=== PATIENT | male | born 2005 | race Hispanic/Latino ===

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

== ENCOUNTER 2023-11-07 06:31 | Emergency (ER) | payer MEDICAID ==
[~2023-11-07] VITALS: Ht 167.6 cm; Wt 90.4 kg
[~2023-11-07 06:31] MED LIST changes: +IBUP-2071 PO; +OSEL75 PO
[2023-11-07 06:54] LABS: APPEARANCE,URINE CLEAR (CLEAR); BILIRUBIN,URINE NEGATIVE (NEGATIVE); COLOR,URINE LIGHT-YELLOW (YELLOW); GLUCOSE, URINE (UA) NEGATIVE (NEGATIVE); KETONES,URINE NEGATIVE (NEGATIVE); LEUKOCYTE ESTERASE ,URINE NEGATIVE Leu/uL (NEGATIVE); NITRATE,URINE NEGATIVE (NEGATIVE); OCCULT BLOOD,URINE NEGATIVE (NEGATIVE); PROTEIN,URINE 100 mg/dL (NEGATIVE); UROBILINOGEN,URINE 0.2 mg/dL (0.2-1.0)
[2023-11-07 06:55] LABS: ADD UA MICROSCOPIC YES
[2023-11-07 07:02] LABS: SQUAMOUS EPITHELIAL CELL,UR RARE /HPF (0-2); WBC,URINE 0-1 /HPF (0-1)
[2023-11-07] MEDS ORDERED: KETOROLAC 30MG VIAL (30MG/ML) IVP ONE (08:00)
[2023-11-07] MEDS ORDERED: FAMOTIDINE 20MG VIAL IV ONE (08:00)
[2023-11-07 08:03] LABS: HEMATOCRIT 46.1 % (42-54); MEAN CORPUSCULAR HEMOGLOBIN 26.9 pg (27.0-33.0); MEAN CORPUSCULAR HGB CONC 32.3 g/dL (32.0-36.0); MEAN CORPUSCULAR VOLUME 83.2 fL (80-100); RED BLOOD CELL COUNT(AUTO) 5.54 MIL/uL (4.50-6.20); RED CELL DISTRIBUTION WIDTH 13.2 % (11.0-15.5); WHITE BLOOD COUNT (AUTO) 9.5 K/uL (4.8-10.8)
[2023-11-07 08:16] LABS: CREATININE 0.8 mg/dL (0.5-1.5); POTASSIUM 4.3 mmol/L (3.5-5.1)
[2023-11-07] MEDS ORDERED: 0.9%NACL 1000ML 1,275 ML IV ONE (08:30)
[2023-11-07] MEDS ORDERED: IOHEXOL-350 75 ML VIAL IV ONE (08:36)
[2023-11-07 10:30] VITALS: BP 110/70; RESP 16; O2SAT 99
[2023-11-07 11:07] VITALS: PULSE 94
== END 2023-11-07 11:29 | disposition home or self-care (01) ==
LOC: EDH 06:31
DX: I86.1 Scrotal varices (principal); F84.0 Autistic disorder; J45.909 Unspecified asthma, uncomplicated; F90.9 Attention-deficit hyperactivity disorder, unspecified type
CPT/HCPCS: 99285; 74178; 96374; 96361; 96375; 80048; 85027; 81001; 36415; 76870; J1885; Q9967; S0028; J3490

== ENCOUNTER → 2024-03-30 | Outpatient (CLI) | payer MEDICAID ==
[~2024-03-30] MED LIST changes: +CEPH500B PO; +CETI10CA5 PO; +DOCU100C33 PO; +FLUT1BLS3 IH; -IBUP-2070 PO; -OSEL75 PO
== END | disposition home or self-care (01) ==
LOC: WHH 10:45
PROVIDERS: ATTEND Nurse Practitioner Family
DX: S31.829A Unspecified open wound of left buttock, initial encounter (principal); L02.31 Cutaneous abscess of buttock; L98.492 Non-pressure chronic ulcer of skin of other sites with fat layer exposed; J45.909 Unspecified asthma, uncomplicated; F90.8 Attention-deficit hyperactivity disorder, other type; X58.XXXA Exposure to other specified factors, initial encounter; Y93.89 Activity, other specified; Y92.89 Other specified places as the place of occurrence of the external cause; Y99.8 Other external cause status
CPT/HCPCS: 99215; A6209; A4450

== ENCOUNTER → 2024-04-06 | Outpatient (CLI) | payer MEDICAID | END | disposition home or self-care (01) | LOC: WHH 10:00 | PROVIDERS: ATTEND Nurse Practitioner Family | DX: S31.829D Unspecified open wound of left buttock, subsequent encounter (principal); L02.31 Cutaneous abscess of buttock; L98.492 Non-pressure chronic ulcer of skin of other sites with fat layer exposed; J45.909 Unspecified asthma, uncomplicated; F90.8 Attention-deficit hyperactivity disorder, other type; Z79.899 Other long term (current) drug therapy; X58.XXXD Exposure to other specified factors, subsequent encounter | CPT/HCPCS: 99214; A6209 ==

== ENCOUNTER 2024-12-16 17:32 | Emergency (ER) | payer MEDICAID ==
[~2024-12-16] VITALS: Ht 165.1 cm; Wt 93.0 kg
[2024-12-16] MEDS ORDERED: Solu-medROL 125MG VIAL IVP STA (18:20)
[2024-12-16 19:02] LABS: BASOPHILS # (AUTO) 0.07 K/uL (0.00-0.20); BASOPHILS % (AUTO) 0.9 % (0.0-5.0); EOSINOPHILS # (AUTO) 0.83 K/uL (0.00-0.70); EOSINOPHILS % (AUTO) 10.8 % (0.0-8.0); HEMATOCRIT 46.6 % (42-54); IMMATURE GRANULOCYTE ABSOLUTE 0.02 K/uL (0-1); LYMPHOCYTES # (AUTO) 1.6 K/uL (1.0-4.8); LYMPHOCYTES % (AUTO) 20.9 % (21.0-51.0); MEAN CORPUSCULAR HEMOGLOBIN 26.2 pg (27.0-33.0); MEAN CORPUSCULAR HGB CONC 31.8 g/dL (32.0-36.0); MEAN CORPUSCULAR VOLUME 82.5 fL (80-100); MONOCYTES # (AUTO) 0.5 K/uL (0.1-1.0); NEUTROPHILS # (AUTO) 4.7 K/uL (1.8-7.7); NEUTROPHILS % (AUTO) 61.1 % (40.0-77.0); PLATELET COUNT (AUTO) 352 K/uL (130-400); RED BLOOD CELL COUNT(AUTO) 5.65 MIL/uL (4.50-6.20); RED CELL DISTRIBUTION WIDTH 13.4 % (11.0-15.5); WHITE BLOOD COUNT (AUTO) 7.7 K/uL (4.8-10.8)
--- NOTE | 2024-12-16 19:08 | HMCIMG ---
INDICATION: SOB TECHNIQUE: CHEST 1VW COMPARISON: 12/10/2019 FINDINGS/IMPRESSION: Prominent bilateral interstitial markings which may represent bronchitis or vascular congestion in the proper clinical setting. Cardiac silhouette is within normal limits. Mild degenerative changes of the spine. The visualized upper abdomen appears unremarkable.
[2024-12-16 19:11] LABS: CREATININE 0.9 mg/dL (0.5-1.3); POTASSIUM 3.8 mmol/L (3.5-5.1)
--- NOTE | 2024-12-16 19:44 | ERN ---
ED Note History of Present Illness Stated Complaint: SOB Chief Complaint: Adult-Asthma Time Seen by MD: 17:45 Time Seen by Midlevel: 17:50 Dictation: 19-year-old male with a history of asthma and autism brought in by father for shortness a breath onset yesterday. Patient states he has used his inhaler twice today has felt better but father decided to bring him in for evaluation. Denies any fever, cough, sick contacts, nausea, vomiting or diarrhea. Allergies: Coded Allergies: No Known Drug Allergies (Unverified Allergy, Unknown, 06/03/19) Home Meds Active Scripts Cephalexin Monohydrate (Keflex) 500 Mg Cap, 500 MG PO Q8H, #21 CAP 0 Refills Prov:MANSI FONTENOT AGPCNP 03/14/24 Ibuprofen (Ibuprofen) 800 Mg Tablet, 800 MG PO TIDMEALS PRN for PAIN, #45 TAB Prov:DONNELL SANTIAGO 10/04/22 Cyclobenzaprine HCl (Cyclobenzaprine HCl) 10 Mg Tablet, 10 MG PO TID PRN for BACK PAIN, #15 TAB 0 Refills Prov:RASHAWN MELVIN MD 07/27/22 Reported Medications Docusate Sodium (Docusate Sodium) 100 Mg Capsule, 100 MG PO DAILY, CAP 03/07/24 Fluticasone/Umeclidin/Vilanter (Trelegy Ellipta 100-62.5-25) 100-62.5 Blst.w.dev, 1 EACH IH DAILY 03/07/24 Cetirizine HCl (Zyrtec) 10 Mg Capsule, 10 MG PO DAILY, CAP 03/07/24 Past Medical History Past Medical History: Asthma, Constipation, GERD Additional Past Medical Hx: AUTISM, ADHD Surgical History: Tonsillectomy Surgical History Other: CIRCUMCISION Family History: Negative Social History: Lives with family Review of System Dictation CONSTITUTIONAL: Negative except for HPI HEAD/FACE: Negative except for HPI EENT: Negative except for HPI RESPIRATORY: Negative except for HPI GASTROINTESTINAL/ABDOMINAL: Negative except for HPI GENITOURINARY: Negative except for HPI MUSCULOSKELETAL: Negative except for HPI INTEGUMENTARY: Negative except for HPI NEUROLOGICAL/PSYCH: Negative except for HPI HEMATOLOGIC/LYMPHATIC: Negative except for HPI All Systems Negative, Except as noted above. 13 point review of systems assessed and all negative except for above. Initial Vital Sign VS Vital Signs Date Time Temp Pulse Resp B/P (MAP) Pulse Ox O2 Delivery O2 Flow Rate FiO2 12/16/24 18:04 99.0 98 18 135/82 98 Room Air 0 Physical Exam Dictation Vital Signs reviewed General Appearance: Alert, oriented x 3, no acute distress, well developed, nourished. Head and Face: non-traumatic. Eyes: PERRL, pink conjunctivas, eyelid no trauma, anterior chamber with arcus senilis. Ears: Pinnas intact and no signs of trauma or erythema ear canals clear and no discharge TM no erythema Nose: No discharge, no bleeding. Oropharynx: Mouth normal, tongue pink, pharynx clear,no erythema, tonsils no exudates, no abscesses noted, mucous membrane moist Neck: Supple, non-tender, no thyromegaly, no masses, no JVD, no bruits Breast:Deferred Chest:No tenderness, no crepitus, no paradoxical movement, no retractions Lungs:Clear, well-ventilated, symmetric, no rales, wheezing to bilateral lung lopez, no rhonchi, no stridor, Heart: Regular rate, regular rhythm, no murmur, no gallops Vascular: no peripheral edema, Abdomen: Soft, positive bowel sounds, nondistended, no guarding, nontender, no rebound, no masses no hepatomegaly, no splenomegaly, no Yepez's sign, no hernias. Rectal: Deferred Genital: Deferred Neurological: Normal speech, motor function intact, sensory function intact Musculoskeletal: Neck nontender, full range of motion, back nontender, full range of motion, Extremities: nontender, full range of motion Skin: Color pink, dry, no turgor, no rash, no lacerations, no abrasions, no contusions. Lymphatic: Deferred Results (Laboratory/Radiology) Laboratory/Radiology Laboratory Tests Test 12/16/24 18:51 White Blood Count 7.7 K/uL (4.8-10.8) Red Blood Count 5.65 MIL/uL (4.50-6.20) Hemoglobin 14.8 g/dL (14.0-18.0) Hematocrit 46.6 % (42-54) Mean Corpuscular Volume 82.5 fL (80-100) Mean Corpuscular Hemoglobin 26.2 pg (27.0-33.0) L Mean Corpuscular Hemoglobin Concent 31.8 g/dL (32.0-36.0) L Red Cell Distribution Width 13.4 % (11.0-15.5) Platelet Count 352 K/uL (130-400) Mean Platelet Volume 9.3 fL (7.5-10.5) Immature Granulocyte % (Auto) 0.3 % (0-1) Neutrophils (%) (Auto) 61.1 % (40.0-77.0) Lymphocytes (%) (Auto) 20.9 % (21.0-51.0) L Monocytes (%) (Auto) 6.0 % (3.0-13.0) Eosinophils (%) (Auto) 10.8 % (0.0-8.0) H Basophils (%) (Auto) 0.9 % (0.0-5.0) Neutrophils # (Auto) 4.7 K/uL (1.8-7.7) Lymphocytes # (Auto) 1.6 K/uL (1.0-4.8) Monocytes # (Auto) 0.5 K/uL (0.1-1.0) Eosinophils # (Auto) 0.83 K/uL (0.00-0.70) H Basophils # (Auto) 0.07 K/uL (0.00-0.20) Absolute Immature Granulocyte (auto 0.02 K/uL (0-1) Nucleated Red Blood Cells 0.0 % (0.0-0.19) Sodium Level 140 mmol/L (136-145) Potassium Level 3.8 mmol/L (3.5-5.1) Chloride Level 102 mmol/L (101-111) Carbon Dioxide Level 31 mmol/L (21-32) Blood Urea Nitrogen 11 mg/dL (7-18) Creatinine 0.9 mg/dL (0.5-1.3) Glomerular Filtration Rate Calc 125 mL/min (>90) Random Glucose 95 mg/dL (70-105) Total Calcium 9.5 mg/dL (8.5-10.1) Labs Reviewed?: Yes ED Course ED Course Orders Procedure Category Date Status Time Chest 1vw RAD 12/16/24 Resulted 18:11 Methylprednisolone PHA 12/16/24 Complete Succ 125mg (Solu-Medr 18:20 Ipratropium/Albuterol PHA 12/16/24 Complete Neb (Duoneb) 18:20 Influenza Type A & B, LAB 12/16/24 In Process Rapid 18:27 Covid Rna Naat LAB 12/16/24 In Process 18:27 Cbc With Differential LAB 12/16/24 Complete 18:27 Basic Metabolic Panel LAB 12/16/24 Complete 18:27 Methylprednisolone PHA 12/16/24 In Process Succ 125mg (Solu-Medr 21:30 Current Medications Medications (Trade) Dose Ordered Sig/Vanessa Route PRN Reason Start Time Stop Time Status Last Admin Dose Admin Albuterol (DUOneb) 1 UDVIAL ONCE STAT IH 12/16/24 18:20 12/16/24 18:21 DC 12/16/24 21:01 Methylprednisolone Sodium Succinate (Solu-medROL 125MG) 125 mg ONCE ONCE IVP 12/16/24 21:30 12/16/24 21:31 Methylprednisolone Sodium Succinate (Solu-medROL 125MG) 125 mg ONCE STAT IVP 12/16/24 18:20 12/16/24 18:21 DC Vital Signs Date Time Temp Pulse Resp B/P (MAP) Pulse Ox O2 Delivery O2 Flow Rate FiO2 12/16/24 20:48 94 16 12/16/24 18:04 99.0 98 18 135/82 98 Room Air [address] [address] IMAGING REPORT Signed PATIENT: CINTHYA RITTER MR#: [id number] : 2005 SEX: M AGE: 19 LOCATION: ED ORDER 11 STATUS: REG ER REPORT#: [id number] SERVICE 181 REASON: SOB ORDERING PHYSICIAN: CRISS YOUSIF NP PROCEDURE: CXR1VW - CHEST 1VW INDICATION: SOB TECHNIQUE: CHEST 1VW COMPARISON: 12/10/2019 FINDINGS/IMPRESSION: Prominent bilateral interstitial markings which may represent bronchitis or vascular congestion in the proper clinical setting. Cardiac silhouette is within normal limits. Mild degenerative changes of the spine. The visualized upper abdomen appears unremarkable. DICTATED BY: NIA HURTADO MD DATE: 12/16/241904 ELECTRONICALLY SIGNED BY: NIA HURTADO MD DATE: 12/16/241907 Medical Decision Making MDM 19-year-old male with a history of asthma and autism brought in by father for shortness a breath onset yesterday. Patient states he has used his inhaler twice today has felt better but father decided to bring him in for evaluation. Denies any fever, cough, sick contacts, nausea, vomiting or diarrhea. Patient out in [facility], pending nebulizing treatment.1943 report given to Renzo MNEARD, will continue care Patient reassessed at 9:22 p.m. patient was given albuterol treatment and steroids. There was no more wheezing on repeat examination. The patient will be discharged home with a Z-Charles, Medrol pack, and albuterol for his home nebulizer. He has a follow up with his primary care doctor next week where he will be getting another inhaler. Patient was stable for discharge at this time DX & DISP Disposition: Discharge Departure Impression: Primary Impression: Acute asthma exacerbation Condition: Stable Scripts Albuterol Sulfate (Albuterol Sulfate) 2.5 Mg/0.5 Ml Vial.neb 2.5 MG IH Q6H for wheezing/sob, #20 INH 0 Refills Prov: RENZO MAS 12/16/24 Methylprednisolone (Medrol) 4 Mg Tab.ds.pk 1 TAB PO AD for 6 Days, #21 TAB 0 Refills 6 on day 1 then reduce by one tablet daily until gone Prov: RENZO MAS 12/16/24 Azithromycin (Azithromycin) 250 Mg Tablet 1 TAB PO AD for 5 Days, #6 TAB 0 Refills 2 the first day followed by 1 for days 2-5 Prov: RENZO MAS 12/16/24 Additional Instructions: Your blood work today is unremarkable. Please follow up with your primary care doctor for repeat evaluation. Referrals: RONNELL ADAME DO (PCP) Time of Disposition: 21:25 I have reviewed the case, and I agree with, Diagnosis and Plan I performed the substantive portion of the visit. I have reviewed and personally made and approve the management plan that is documented in the note by myself or the DANISH. I acknowledge for responsibility for the patient's management plan. CRISS YOUSIF NP Dec 16, 2024 19:44 RENZO MAS Dec 16, 2024 21:26
[2024-12-16 20:48] VITALS: PULSE 94; RESP 16
[2024-12-16] MEDS: IpraTROPium/alBUTERol SULFATE 3 ML SOLUTION IH STA (21:01)
[2024-12-16] MEDS ORDERED: AUD IH (21:25)
[2024-12-16] MEDS: Solu-medROL 125MG VIAL IM ONE (21:25)
[2024-12-16] MEDS ORDERED: AZIT250T9 PO (21:25)
[2024-12-16] MEDS ORDERED: METH4TAB3 PO (21:25)
[2024-12-16] MEDS ORDERED: Solu-medROL 125MG VIAL IVP ONE (21:30)
[2024-12-16 21:34] VITALS: BP 122/68; PULSE 96; RESP 18; TEMP 98.6; O2SAT 99
[2024-12-16 21:35] LABS: SARS-CoV-2, RNA, NAAT NEGATIVE SARS CoV-2 (NEGATIVE)
[2024-12-16 21:41] LABS: INFLUENZA TYPE A Negative For Type A (NEGATIVE); INFLUENZA TYPE B Negative For Type B (NEGATIVE)
== END 2024-12-16 21:44 | disposition home or self-care (01) ==
LOC: EDH 17:32
DX: J45.901 Unspecified asthma with (acute) exacerbation (principal); F84.0 Autistic disorder; K21.9 Gastro-esophageal reflux disease without esophagitis; Z90.89 Acquired absence of other organs; Z20.822 Contact with and (suspected) exposure to COVID-19
CPT/HCPCS: 99284; 71045; 87635; 80048; 85025; 87804 ×2; 36415; 96372; 94640; J2919; 96374; 96375